=== PATIENT | male | born 1935 | race Caucasian/White ===

== ENCOUNTER → 2018-06-14 09:24 | Outpatient (CLI) | payer OTHER, SELFPAY ==
--- NOTE | 2018-06-14 09:26 | DI.RAD.S_ITS ---
PROCEDURE: XR TIBIA FUBULA RT 2V INDICATIONS: RICE pain TECHNIQUE: 2 views of the tibia and fibula were acquired. COMPARISON: None. FINDINGS: Bones: No fractures or dislocations. No suspicious bony lesions. Plantar and posterior calcaneal spurring. Diffuse hindfoot degenerative osteophyte formation. Right knee unicompartmental arthroplasty and Soft tissues: No suspicious soft tissue calcifications or masses. IMPRESSION: No fracture. Degenerative changes as above Dictated by: Terrell Wni M.D. on 06/14/2018 at 10:10 Approved by: Terrell Win M.D. on 06/14/2018 at 10:14
== END ==
PROVIDERS: Family Provider Family Medicine; PCP Family Medicine; Visit Provider Family Medicine
DX: M79.661 Pain in right lower leg (principal); M77.31 Calcaneal spur, right foot; M25.774 Osteophyte, right foot
CPT/HCPCS: 73590